=== PATIENT | female | born 1960 ===

== ENCOUNTER 2017-11-26 22:59 | Emergency (ER) | payer MEDICARE, MEDICAID ==
[2017-11-26 23:12] VITALS: BP 156/83; PULSE 102; RESP 17; TEMP 98.3; O2SAT 99
--- NOTE | 2017-11-26 23:41 | ED PDOC ---
HPI: General Adult Time Seen by Provider: 11/26/17 23:37 Chief Complaint (Nursing): Abnormal Skin Integrity Chief Complaint (Provider): SKIN LESION History Per: Patient (57 Y/O FEMALE HERE WITH COMPLAINT OF LEFT HAND LESION WITH CONCERN THAT IT IS NOT HEALING DEPITE USE OF KEFLEX. PATIENT STATES SHE STARTED USE OF LIQUID BANDAGE OVER LESION AND COULD NOT TAKE OFF LATER. NOTES WHITISH MATERIAL UNDER IT. DENIES ANY FEVERS/CHILLS/PAIN. HAS BEEN STARTED ON KEFLEX FOR A FOOT INFECTION BUT DOES NOT SEE CHANGE IN WHITE MATERIAL UNDER LIQUID BANDAGE.) Past Medical History Reviewed: Historical Data, Nursing Documentation, Vital Signs Vital Signs: Last Vital Signs Temp 98.3 F 11/26/17 23:06 Pulse 102 H 11/26/17 23:06 Resp 17 11/26/17 23:06 BP 156/83 H 11/26/17 23:06 Pulse Ox 99 11/26/17 23:06 - Medical History PMH: Hypercholesterolemia - Family History Family History: States: No Known Family Hx - Home Medications Home Medications: Ambulatory Orders Medication Instructions Recorded Bacitracin Ointment [Bacitracin] 0.5 gm TOP BID #1 tube 11/26/17 - Allergies Allergies/Adverse Reactions: Allergies Allergy/AdvReac Type Severity Reaction Status Date / Time No Known Allergies Allergy Unverified 01/10/14 10:25 Review of Systems ROS Statement: Except As Marked, All Systems Reviewed And Found Negative Physical Exam - Reviewed Nursing Documentation Reviewed: Yes Vital Signs Reviewed: Yes - Physical Exam Appears: Positive for: Well, Non-toxic, No Acute Distress Head Exam: Positive for: ATRAUMATIC, NORMAL INSPECTION, NORMOCEPHALIC Skin: Positive for: Normal Color, Warm, DRY Eye Exam: Positive for: EOMI, Normal appearance, PERRL ENT: Positive for: Normal ENT Inspection Neck: Positive for: Normal, Painless ROM Cardiovascular/Chest: Positive for: Regular Rate, Rhythm Respiratory: Positive for: CNT, Normal Breath Sounds Gastrointestinal/Abdominal: Positive for: Normal Exam, Bowel Sounds, Soft Back: Positive for: Normal Inspection Extremity: Positive for: Normal ROM, Other (NO ERYTHEMA NOTED SURROUNDING SKIN WOUND. GRANULATION TISSUE NOTED UNDER LIQUID BANDAGE.) Neurologic/Psych: Positive for: Alert, Oriented - ECG O2 Sat by Pulse Oximetry: 99 Disposition - Clinical Impression Clinical Impression: Healing wound, Visit for wound check - Patient ED Disposition Is Patient to be Admitted: No - Disposition Disposition: Routine/Home Disposition Time: 23:42 Condition: FAIR Prescriptions: Bacitracin Ointment [Bacitracin] 0.5 gm TOP BID #1 tube Instructions: Skin Avulsion (ED)
== END 2017-11-26 23:58 | disposition home or self-care (01) ==
LOC: H.ER 22:59
DX: T81.89XA Other complications of procedures, not elsewhere classified, initial encounter (principal); E78.00 Pure hypercholesterolemia, unspecified